=== PATIENT | male | born 1990 | race African-American/Black ===

== ENCOUNTER 2019-08-21 21:42 | Emergency (ER) | payer MEDICAID ==
[~2019-08-21] VITALS: Ht 198.1 cm; Wt 117.9 kg
[2019-08-21 22:13] VITALS: BP 136/90
[2019-08-21] MEDS ORDERED: COCAINE HCL 4% TOP SOL 4ML TOP ONE (23:56)
[2019-08-22] MEDS ORDERED: COCAINE HCL 4% TOP SOL 4ML TOP ONE (00:45)
== END 2019-08-22 04:30 | disposition home or self-care (01) ==
LOC: ER 21:44
DX: R04.0 Epistaxis (principal); I10 Essential (primary) hypertension; J45.909 Unspecified asthma, uncomplicated
CPT/HCPCS: 30901